=== PATIENT | male | born 1950 | race Caucasian/White ===

== ENCOUNTER 2020-09-22 17:19 | Emergency (ER) | payer MEDICARE ==
[~2020-09-22] VITALS: Ht 177.8 cm; Wt 86.4 kg
[2020-09-22 17:19] VITALS: BP 141/67
[2020-09-22] MEDS ORDERED: SIMV20TA22 PO (17:35)
[2020-09-22] MEDS ORDERED: PIOG1TAB37 PO (17:35)
[2020-09-22] MEDS ORDERED: LISI-898 PO (17:35)
[2020-09-22] MEDS ORDERED: PIOG1TAB55 PO (17:35)
[2020-09-22] MEDS ORDERED: ASPI81CH33 PO (17:35)
[2020-09-22] MEDS ORDERED: METF-839 PO (17:35)
[2020-09-22] MEDS ORDERED: CLINDAMYCIN 150MG CAPSULE PO ONE (21:05)
[2020-09-22] MEDS ORDERED: CLEO150C PO (21:11)
== END 2020-09-22 21:33 | disposition home or self-care (01) ==
LOC: M ED 17:19
DX: L03.115 Cellulitis of right lower limb (principal); E11.9 Type 2 diabetes mellitus without complications; I10 Essential (primary) hypertension; E78.5 Hyperlipidemia, unspecified; Z88.0 Allergy status to penicillin; Z79.82 Long term (current) use of aspirin; Z79.899 Other long term (current) drug therapy

== ENCOUNTER 2020-09-25 07:48 | Emergency (ER) | payer MEDICARE ==
[~2020-09-25] VITALS: Ht 177.8 cm; Wt 87.2 kg
[~2020-09-25 07:48] MED LIST: ASPI81CH33 PO; CLEO150C PO; LISI-898 PO; METF-839 PO; PIOG1TAB37 PO; PIOG1TAB55 PO; SIMV20TA22 PO
[2020-09-25 09:19] LABS: BASO % 0.5 % (0.0-1.0); EOS # 0.1 10^3/uL (0.0-0.5); EOS % 1.6 % (0.0-3.0); HEMATOCRIT 37.3 % (42.0-52.0); LYMPH # 1.8 10^3/uL (1.5-5.0); LYMPH % 29.8 % (24.0-44.0); MEAN CORPUSCULAR HEMOGLOBIN 31.8 pg (27.0-33.0); MEAN CORPUSCULAR HGB CONC 32.2 g/dl (32.0-36.5); MEAN CORPUSCULAR VOLUME 98.9 fl (80.0-96.0); MONO # 0.5 10^3/uL (0.0-0.8); MONO % 8.3 % (2.0-8.0); NEUTROPHILS # 3.7 10^3/uL (1.5-8.5); NEUTROPHILS % 59.5 % (36.0-66.0); PLATELET COUNT, AUTOMATED 278 10^3/uL (150-450); RED BLOOD COUNT 3.77 10^6/uL (4.30-6.10); WHITE BLOOD COUNT 6.2 10^3/uL (4.0-10.0)
[2020-09-25 09:41] LABS: ALBUMIN 3.3 GM/DL (3.2-5.2); ALT/SGPT 13 U/L (12-78); BILIRUBIN,DIRECT 0.2 MG/DL (0.0-0.2); BILIRUBIN,TOTAL 0.5 MG/DL (0.2-1.0); BLOOD UREA NITROGEN 18 MG/DL (7-18); C REACTIVE PROTEIN QUANTITATIV 5.79 MG/DL (0.00-0.30); CALCIUM LEVEL 8.8 MG/DL (8.8-10.2); CARBON DIOXIDE LEVEL 29 MEQ/L (21-32); CHLORIDE LEVEL 107 MEQ/L (98-107); CREATININE FOR GFR 1.05 MG/DL (0.70-1.30); GLOMERULAR FILTRATION RATE > 60.0 (>42); GLUCOSE, FASTING 188 MG/DL (70-100); POTASSIUM SERUM 4.5 MEQ/L (3.5-5.1); SODIUM LEVEL 140 MEQ/L (136-145); TOTAL PROTEIN 6.6 GM/DL (6.4-8.2)
[2020-09-25] MEDS ORDERED: DOXYCYCLINE HYCLATE 100 MG in D5W MINI-BAG PLUS 100 ML IV ONE (10:00)
[2020-09-25 10:08] LABS: ERYTHROCYTE SEDIMENTATION RATE 28 mm/hr (0-20)
--- NOTE | 2020-09-25 10:19 | REP ---
INDICATION: Large area of redness, non tender ro Abscess R thigh. COMPARISON: None. TECHNIQUE: Targeted soft tissue sonography right thigh medially. FINDINGS: Scanning in the soft tissues of the medial thigh in the right lower extremity in the area of redness shows no evidence of abscess or other fluid collection. No mass or adenopathy is seen. No vascular abnormality noted. IMPRESSION: Unremarkable targeted right medial thigh soft tissue sonography. <Electronically signed by Peter Izaguirre > 09/25/20 [id number]
[2020-09-25] MEDS ORDERED: DOXY1CAP62 PO (11:59)
[2020-09-25 12:12] VITALS: BP 127/63
[2020-09-26 15:08] LABS: Lyme Disease IgG/IgM Antibodie <0.91 ISR (0.00-0.90); Lyme Disease IgM Ab Quantitati <0.80 index (0.00-0.79)
== END 2020-09-25 12:22 | disposition home or self-care (01) ==
LOC: M ED 07:48
DX: L03.115 Cellulitis of right lower limb (principal); E11.9 Type 2 diabetes mellitus without complications; I10 Essential (primary) hypertension; E78.5 Hyperlipidemia, unspecified; I25.2 Old myocardial infarction; Z79.82 Long term (current) use of aspirin; Z79.899 Other long term (current) drug therapy